=== PATIENT | male | born 1970 | race Caucasian/White ===

== ENCOUNTER 2020-11-28 21:48 | Emergency (ER) | payer SELFPAY ==
[~2020-11-28] VITALS: Ht 175.3 cm; Wt 68.0 kg
[2020-11-28 22:04] VITALS: BP 112/78
== END 2020-11-29 | disposition home or self-care (01) ==
LOC: ER 21:52
DX: F10.229 Alcohol dependence with intoxication, unspecified (principal); F17.200 Nicotine dependence, unspecified, uncomplicated; Z59.0 Homelessness; Y90.9 Presence of alcohol in blood, level not specified